=== PATIENT | male | born 1985 | race Caucasian/White ===

== ENCOUNTER 2024-11-28 17:46 | Emergency (ER) | payer BC, SELFPAY ==
--- OUTSIDE RECORDS SUMMARY | 2024-11-28 17:48 | XMS_ITS | Clinical Summary ---
Author Organization [facility] Address [address] [place] [id number] Care Team Providers Care Activity Therapy Specialist Name Role Phone Pcp, No Primary Care Provider Unavailabl e Allergies No known active allergies Medications No known medications Immunizations Immunization Administration Dates Next Due Influenza, IIV4 05/10/2022,,04/07/2017,03/22/2016,04/24/2015,03/22 Social History Tobacco Use Types Packs/Day Years Used Date Smoking Tobacco: Never Smokeless Tobacco: Never Tobacco Cessation:Counseling Given: Yes Alcohol Use Standard Drinks/Week Comments No 0 (1 standard drink = 0.6 oz pur e alcohol) Social Connections Answer Date Recorded Frequency of Communication with Friends and Fami ly Not on file 09/07/2021 Sex and Gender Information Value Date Recorded Sex Assigned at Not on file Legal Sex Male 8:42 AM CDT Gender Identity Not on file Sexual Orientation Not on file Obstetrics History Last Filed Vital Signs Vital Sign Reading Time Taken Comments Blood Pressure 126/82 01/10/2018 3:03 PM CDT tow er Pulse 92 01/10/2018 3:03 PM CDT Temperature 37.4 C (99.3 F) 01/10/2018 3:03 PM CDT Respiratory Rate 20 03/15/2016 6:40 PM CDT Oxygen Saturation 98% 01/10/2018 3:03 PM CDT Inhaled Oxygen Concentration - - Weight 99.6 kg (219 lb 9.6 oz) 01/10/2018 3:03 P M CDT Height 171.5 cm (5' 7.5) 01/10/2018 3:03 PM CDT Body Mass Index 33.89 01/10/2018 3:03 PM CDT Plan of Treatment Health Maintenance Due Date Last Done Comments Tdap 1996 HIV for age 15-65 2000 Hepatitis C screening for age 18-79 2003 Hepatitis B series for 19+ (1 of 3 - 19+ 3-dose series) 2004 Tetanus booster 2005 BMI (ht and wt on same day) for age 18+ 01/10/2019 01/10/2018 Depression screening for age 12+ 01/10/2019 01/10/2018 Lipids for age 35-44 2020 COVID-19 vaccine series ( - 2023- season) 2024 Influenza Vaccine (Season Ended) 2025 05/10/2022, 03/31/2021, 04/07/2017, Additional history exists Pneumococcal series for age 6-49 Aged Out No longer eligible based on patient's age to complete this topic Insurance [facility] [address] [place] [place] [address] [facility] Care Teams Activity Therapy Specialist Relationship Specialty Start Date End Date Pcp, No . PCP - General 03/22/14
[2024-11-28 17:49] VITALS: BP 148/98; PULSE 99; RESP 18; TEMP 36.3; O2SAT 97; BMI 38.0
--- NOTE | 2024-11-28 18:47 | CRLHL7_ITS ---
For Patients: As a result of the Century Cures Act, medical imaging exams and procedure reports are released immediately into your electronic medical record. You may view this report before your referring provider. If you have questions, please contact your health care provider. INDICATION: Abdominal pain TECHNIQUE: CT abdomen and pelvis acquired with 122 cc Isovue 370 IV contrast. COMPARISON: None. FINDINGS: Lower chest: Unremarkable. Liver: Hepatic steatosis. No suspicious masses. Gallbladder and bile ducts: Unremarkable. No stones or inflammation. No biliary dilatation. Pancreas: Unremarkable. No mass or inflammation. Spleen: Unremarkable. Normal in size. No masses. Adrenal glands: Unremarkable. No nodules. Kidneys: Unremarkable. No suspicious masses, stones, or hydronephrosis. GI tract: Colonic diverticulosis with focal thickening of the sigmoid colon and adjacent pericolonic stranding. No fluid collection. No evidence obstruction. Normal appendix. Vasculature: Abdominal aorta is normal in caliber. Mesenteric arteries are patent. Lymph nodes: No lymphadenopathy. Peritoneum/Abdominal Wall: Unremarkable. No sign of mass or infiltration. No free air or significant free fluid. Pelvis: Unremarkable. Bones: Unremarkable for age. IMPRESSION: 1. Acute uncomplicated sigmoid diverticulitis. Recommend reimaging following resolution of acute episode to exclude underlying mass. 2. Hepatic steatosis. Please note that all CT scans at this facility use dose modulation, iterative reconstruction, and/or weight-based dosing when appropriate to reduce radiation dose to as low as reasonably achievable. Dictated by Leonor Rucker MD @ 11/28/2024 7:38:40 PM (Electronically Signed)
--- NOTE | 2024-11-28 18:48 | ED.ABDPAIN ---
HPI - Abdominal Pain General Date Seen: 11/28/24 Chief Complaint: Abdominal Pain Stated Complaint: sent by scott Nowak CT Time Seen by Provider: 11/28/24 18:16 Source: patient Mode of arrival: ambulatory Limitations: no limitations History of Present Illness HPI narrative: Patient is a 39-year-old male presenting to emergency department for lower abdominal pain. States pain started 2 days ago. Denies having pain like this before. States it has been gradually getting worse. Went to urgent care today because he thought was UTI. Was told he does not have a UTI and instead may have diverticulitis but there was some concern for appendicitis so was sent here for CT scan. He has no previous abdominal surgeries. Is not on any current medications. States initially was a pressure sensation but is now more painful. Quick movements tend to make the pain worse. Does state urinating or passing a bowel movement seems to relieve the pain slightly. Pain is more suprapubic and to the left he states. Has not had any fevers at home. Denies nausea, vomiting, diarrhea, constipation, weakness, numbness, headache, lightheadedness, dizziness, chest pain, shortness of breath. Related Data Previous Rx's ?Medication ?Instructions ?Recorded amoxicillin 875 mg-potassium 1 tab PO BID #20 tabs 11/28/24 clavulanate 125 mg tablet Allergies Allergy/AdvReac Type Severity Reaction Status Date / Time No Known Drug Allergies Allergy Verified 11/28/24 19:04 Review of Systems Status of ROS Reports: 10 or more systems reviewed and unremarkable except as noted in History and below [facility] Medical History Onychomycosis ?B35.1 - Tinea unguium (ICD-10) Surgical History History of skin graft ?Z94.5 - Skin transplant status (ICD-10) Family History Other Colon cancer Social History Smoking Status: Never smoker Exam Narrative: Exam Narrative: Const: Well-nourished, Well-developed, in mild distress Eyes: PERRL, no conjunctival injection, and symmetrical lids HENT: Atraumatic external nose and ears. Moist mucous membranes. Neck: Symmetric, trachea midline, No thyromegaly. CVS: RRR, No murmurs or gallops. Peripheral pulses 2+ and equal in all extremities RESP: Unlabored respiratory effort. Clear to auscultation bilaterally. GI: Lower abdominal tenderness throughout but worse in the right lower quadrant. Nondistended, No rebound or guarding. MSK:Extremities w/o deformity, Normal Active ROM Skin: Warm, Dry. No rashes or lesions. Neuro: Normal Muscle tone, No focal neurological deficits. Psych: Awake, Alert, & Oriented x3. Appropriate mood and affect. Const: Vital Signs, click to edit/add: Vital Signs - 24 hr 11/28/24 17:49 11/28/24 19:45 Temperature 97.3 F L Pulse Rate [Right Pulse Oximeter] 99 96 Respiratory Rate 18 16 Blood Pressure [Ri t Upper Arm] 148/98 H 150/93 H Pulse Oximetry 97 97 Oxygen Delivery Me thod Room Air Room Air Course Vital Signs Vital signs: Initial Vital Signs Temperature 97.3 F L 11/28/24 17:49 Temperature Source Temporal Artery Scan 11/28/24 17:49 Pulse Rate 99 11/28/24 17:49 Pulse Rhythm Regular 11/28/24 17:49 Pulse Strength 3+ Normal 11/28/24 17:49 Respiratory Rate 18 11/28/24 17:49 Blood Pressure 148/98 H 11/28/24 17:49 Blood Pressure Mean 114 H 11/28/24 17:49 Blood Pressure Position Sitting 11/28/24 17:49 Pulse Oximetry 97 11/28/24 17:49 Oxygen Delivery Method Room Air 11/28/24 17:49 Vital Signs Temperature 97.3 F L 11/28/24 17:49 Pulse Rate 99 11/28/24 17:49 Respiratory Rate 18 11/28/24 17:49 Blood Pressure 148/98 H 11/28/24 17:49 Pulse Oximetry 97 11/28/24 17:49 Oxygen Delivery Method Room Air 11/28/24 17:49 Temperature 97.3 F L 11/28/24 17:49 Pulse Rate 96 11/28/24 19:45 Respiratory Rate 16 11/28/24 19:45 Blood Pressure 150/93 H 11/28/24 19:45 Pulse Oximetry 97 11/28/24 19:45 Oxygen Delivery Method Room Air 11/28/24 19:45 MDM - Abdominal Pain MDM Narrative Medical decision making narrative: Patient is a 39-year-old male presenting to the emergency department for abdominal pain. Differential at this time includes appendicitis and diverticulitis. With location of pain pancreatitis, gallbladder and liver disease seem less likely. Unlikely to be a gastric ulcer at this time. Urinalysis at urgent care does not appear to show a UTI at this time. He is otherwise stable at this time I will do a CT scan with IV contrast. Concern for aortic aneurysm rupture is very low with his otherwise stable vital signs. CT returns and appears to show diverticulitis. It is uncomplicated. He is doing well. I believe he is safe for discharge. He has already been prescribed Augmentin by urgent care. Imaging Data CT scan abdomen and pelvis: Attestation: I have reviewed the pertinent imaging results. Radiologist's impression: 1. Acute uncomplicated sigmoid diverticulitis. Recommend reimaging following resolution of acute episode to exclude underlying mass. 2. Hepatic steatosis. Please note that all CT scans at this facility use dose modulation, iterative reconstruction, and/or weight-based dosing when appropriate to reduce radiation dose to as low as reasonably achievable. Dictated by Leonor Rucker MD @ 11/28/2024 7:38:40 PM Discharge Plan Discharge Clinical Impression: Diverticulitis Patient Disposition: Home, Self-Care Condition: Stable Additional Instructions: You have uncomplicated diverticulitis based on the CT scan. It is recommended you follow-up with your primary care provider at resolution of symptoms for possible reimaging to rule out any underlying masses not seen due to the inflammation. Take your prescribed antibiotics as directed. Return to emergency department for new or worsening symptoms Prescriptions: No Action amoxicillin-pot clavulanate 875-125 mg tablet 1 tab PO BID Qty: 20 0RF Follow Up/Referrals: Dago Marin MD [Staff Physician, Family Practice] Stand Alone Forms: Easy [employer] Info Instructions
[2024-11-28 19:45] VITALS: BP 150/93; PULSE 96; RESP 16; O2SAT 97
== END 2024-11-28 20:00 | disposition home or self-care (01) ==
PROVIDERS: Emergency Provider Student in an Organized Health Care Education/Training Program; PCP Family Medicine
DX: K57.32 Diverticulitis of large intestine without perforation or abscess without bleeding (principal)
CPT/HCPCS: 74177; 99283; 99284; Q9967